=== PATIENT | male | born 1985 | race Caucasian/White ===

== ENCOUNTER → 2018-12-03 | Outpatient (CLI) | payer BC ==
--- NOTE | 2018-12-03 17:46 | Diagnostic Imaging Report ---
PROCEDURE: US Renal Bilateral. TECHNIQUE: Multiple real-time grayscale images were obtained over the kidneys in various projections bilaterally. INDICATION: Hypertension. There are no prior studies available for comparison. FINDINGS: Both kidneys are identified. The right kidney measures 11.6 x 5.3 x 4.4 cm while the left kidney is estimated to be 11.0 x 5.6 x 4.4 cm. There is no evidence for a solid renal mass or for hydronephrosis of either kidney. The renal cortices are normal in thickness and echogenicity. The renal arteries are not visualized on this study. If further evaluation of the renal arteries is desired, then a renal Doppler exam would be recommended. The bladder is only partially filled and consequently not well evaluated. There is no obvious bladder abnormality evident. Both ureteral jets are noted. IMPRESSION: 1. There is no evidence for a solid renal mass or for an acute abnormality of either kidney. 2. The renal arteries are not visualized on this exam. Recommendations as above. 3. The urinary bladder is grossly unremarkable. Dictated by: Dictated on workstation # [id number]
== END ==
LOC: RAD 08:52
PROVIDERS: ATTEND Urology
DX: N46.11 Organic oligospermia (principal); I10 Essential (primary) hypertension
CPT/HCPCS: 36415; 76770; 82757; 83001; 83002; 84146; 84403; 89320